=== PATIENT | male | born 1990 | race Caucasian/White ===

== ENCOUNTER → 2025-04-28 | Outpatient (CLI) | payer BC ==
[2025-04-28 13:36] VITALS: BP 133/79; PULSE 85; RESP 16; TEMP 98.2
--- NOTE | 2025-04-28 13:57 | P.SLEEP ---
History of Present Illness DATE: 04/28/2025 CONSULTATION/NEW PATIENT EVALUATION HISTORY OF PRESENT ILLNESS/SLEEP-WAKE EVALUATION: 34-year-old gentleman had be en evaluated in the sleep center for possible obstructive sleep apnea hypopnea syndrome. SLEEP SCHEDULE: Usually sleep schedule from 10 PM to 5:30 AM on weekdays and until 6 AM on weekend. FALLING ASLEEP: Usually no problems with falling asleep. DURING SLEEP: Patient snores and wakes up from sleep several times with episodes of grinding teeth and gasping for air and nocturia. No history of hypnogogical hallucinations, sleep paralysis, or cataplexy. DURING THE DAY/WAKE STATE: In the morning patient wake up tired, falling asleep during the day. [place] sleepiness scale is increased to 10. Patient takes nap at 1:30 PM. PAST MEDICAL HISTORY: Prediabetes. PAST SURGICAL HISTORY: None. MEDICATIONS: None. SOCIAL HISTORY: Please see below. FAMILY HISTORY: Please see below. REVIEW OF SYSTEMS: Snoring, awakenings from sleep, sleepiness during the day. No fevers. No double vision. No recent chest pain. No shortness of breath. No abdominal pain. No bleeding episodes. No blood in urine. No seizure episodes. PHYSICAL EXAMINATION: GENERAL: A pleasant patient without any distress. VITAL SIGNS: Please see below, weight 209.8 pounds, BMI 32.7. HEENT: PERRLA, EOMI. Evaluation of oropharynx showed tongue protrudes midline, low position of soft palate Mallampati 4. NECK: Supple. No JVD. Thyroid is not palpable. 17 inches in circumference. LUNGS: Clear to percussion and to auscultation. Good air exchange. No wheezing or rhonchi. HEART: S1, S2 regular. No murmurs, gallops or rubs. ABDOMEN: Soft and nontender. Bowel sounds are present. No organomegaly appreciated. EXTREMITIES: No clubbing or cyanosis. RESIDENTIAL DOOR UNIT INSTALLER: Awake, alert, and oriented x3. Cranial nerves 2 to 7 intact. There is no fasciculation or atrophy noted. No focal deficits observed. ASSESSMENT: 1. Snoring, awakenings from sleep with gasping for air, extremely low position of soft palate Mallampati 4, wide neck 17 inches in circumference, sleepiness with Granby Sleepiness Scale 10. Obstructive sleep apnea hypopnea syndrome. 2. Mild obesity, BMI 32.7. 3. History of prediabetes. PLAN: 1. Home sleep apnea test for evaluation of patient's breathing during sleep. 2. Following plan after reading sleep study. 3. Preferable position during sleep on the side. 4. No driving if patient feels any sleepiness. Patient is aware of civil and criminal liability for unsafe driving. 5. Sleep hygiene with regular sleep time for at least 7.5-8 hours. 6. Watching and losing weight. Thank you very much for referring this patient for consultation. Sincerely, Leo Hernadez MD, PhD, FAASM. Diplomat of [employer] [employer], Sleep Medicine Board by [employer] [employer] [facility] [place] cc: Josie Baer Past Medical History Past Medical History: No Reported History History of Any Multi-Drug Resistant Organisms: None Reported Past Surgical History: No Surgical Hx Reported Additional Psychological History / Comment(s): "DAD HAS ADD, BROTHER HAS ADHD, I THINK I HAVE ADD BUT HAVE A BETTER GRASP" Smoking Status: Never smoker Additional Past Alcohol Use History / Comment(s): NO ALCOHOL IN 7 YEARS, STATES WAS OVER DRINKING BUT DOES NOT FEEL IS/WAS AN ALCOHOLIC, JUST QUIT ON HIS OWN. Past Drug Use History: Marijuana - Past Family History Father Additional Family Medical History / Comment(s): ADD Mother Family Medical History: No Reported History Physical Exam Vitals: Vital Signs Temp Pulse Resp BP Pulse Ox 04/28/25 13:34 98.2 F 85 16 133/79 96 Intake and Output 04/27/25 04/28/25 04/28/25 22:59 06:59 14:59 Other: Weight 95.028 kg Sleep Note - Sleep Data ESS Total: 10 - Sleep Note Sleep Note: Temperature: 98.2 F Pulse Rate: 85 Respiratory Rate: 16 Blood Pressure: 133/79 SpO2: 96 Height: 5 ft 7 in Weight: 95.028 kg BMI: Neck Circumference: 17
== END ==
LOC: 3 N SLEEP 13:25
PROVIDERS: ATTEND Internal Medicine
DX: G47.33 Obstructive sleep apnea (adult) (pediatric) (principal); E66.9 Obesity, unspecified; Z68.32 Body mass index [BMI] 32.0-32.9, adult; Z86.39 Personal history of other endocrine, nutritional and metabolic disease
CPT/HCPCS: 99211

== ENCOUNTER → 2025-05-05 | Outpatient (CLI) | payer BC ==
--- NOTE | 2025-05-06 12:21 | P.PCN ---
Description of Procedure: CLINICAL: A home sleep apnea test has been done for confirmation of obstructive sleep apnea-hypopnea syndrome following insurance requirements, because patient was not compliant with CPAP treatment. DESCRIPTION OF PROCEDURE: RESULTS: Recording time was 7 hours 37 minutes. Evaluation time was 7 hours 25 minutes. Evaluation time is sufficient for making conclusion about results of the test. Raw data of sleep recording has been reviewed and is adequate. Respiratory channel showed 1 apneas and 103 hypopneas. Apnea-hypopnea index was 14.0 per hour. Pulse rate in the range between minimum 45, maximum 126, average 58 by computer calculation. Lowest desaturation was 78%. IMPRESSION: 1. Obstructive Sleep Apnea Hypopnea Syndrome in mild, borderline to moderate range, although home sleep apnea test may underestimate severity of sleep apnea. Patient has symptoms of excessive daytime sleepiness, [place] Sleepiness Scale increased to 10. Please see other impressions from consultation. PLAN: 1. The patient should continue auto-PAP treatment. 2. I will see patient for follow up visit to discuss results of the test, evalua te clinical response on treatment with PAP therapy and make any necessary adjustments related to mask fitting, pressure, and humidification. 3. Watching and losing weight. 4. Sleep hygiene with regular time in bed for at least 8 hours. 5. No driving if feeling any sleepiness. Thank you very much for allowing me to participate in the management of your patient. Sincerely, Leo Hernadez MD, PhD, FAASM Diplomat of [place] [employer] Sleep Medicine Board of [place] [employer] Switchboard Operator [facility] [employer] cc: Leydi Wang MD
== END ==
LOC: 3 N SLEEP 16:34
PROVIDERS: ATTEND Internal Medicine
DX: G47.33 Obstructive sleep apnea (adult) (pediatric) (principal)